=== PATIENT | male | born 1955 | race Caucasian/White ===

== ENCOUNTER 2016-12-23 06:35 | Inpatient (IN) | payer MEDICARE, MEDICAID ==
[~2016-12-23] VITALS: Ht 172.7 cm; Wt 69.1 kg
[~2016-12-23 06:35] MED LIST: ACET-784 PO; ASPI-1132 PO; BISA10S PR; CLOM50 PO; CYAN50TA2 PO; DEXAMETHASONE SOD PHOS 4 MG/ML VIAL IVP ONE; FE PR; FOLI1 PO; FentaNYL CITRATE-PF 100 MCG/2 ML VIAL IVP ONE; GLYCOPYRROLATE 0.2 MG/ML VIAL IM ONE; KETAMINE HCL 50 MG/ML 10 ML VIAL IVP ONE; LACT30L PO; METO5TAB95 PO; MOM30 PO; ONDANSETRON HCL 4 MG/2 ML VIAL IVP ONE; PROPOFOL 1% 20 ML VIAL IVP ONE; QUET100T PO; QUET200T PO; RINGERS SOLUTION,LACTATED 1,000 ML IV ONE; RISP.5 PO; SUCCINYLCHOLINE CHLORIDE 20 MG/ML 10 ML VIAL IVP ONE; TAMS0.4C32 PO
[2016-12-23] MEDS ORDERED: RINGERS SOLUTION,LACTATED 1,000 ML IV ONE (06:58)
[2016-12-23] MEDS ORDERED: MIDAZOLAM HCL 5 MG/ML VIAL ONE ×2 (07:28)
[2016-12-23 07:58] LABS: EOSINOPHILS % (AUTO) 2.6 % (1.0-6.0); HEMATOCRIT 38.9 % (41-53); HEMOGLOBIN 13.2 g/dL (13.5-17.5); MEAN CORPUSCULAR HEMOGLOBIN 31.1 pg (26.0-34.0); MEAN CORPUSCULAR HGB CONC 33.8 G/dL (31.0-37.0); MEAN CORPUSCULAR VOLUME 92 fL (80-100); MONOCYTES # (AUTO) 0.5 K/uL (0.1-1.0); MONOCYTES % (AUTO) 8.2 % (2.0-9.0); NEUTROPHILS # (AUTO) 4.4 K/uL (1.8-7.7); NEUTROPHILS % (AUTO) 73.2 % (40.0-70.0); PLATELET COUNT (AUTO) 195 K/uL (150-450); RED BLOOD CELL COUNT(AUTO) 4.23 MIL/uL (4.50-5.90); RED CELL DISTRIBUTION WIDTH 13.5 % (11.5-14.5)
[2016-12-23 08:04] LABS: ANION GAP 9 mmol/L (8-16); CALCIUM, TOTAL 8.9 mg/dL (8.8-10.5); CARBON DIOXIDE 25 mmol/L (22-29); CHLORIDE 104 mmol/L (98-107); GLOMERULAR FILTR. RATE CALC > 60 mL/min (>60); POTASSIUM 4.1 mmol/L (3.5-5.1); SODIUM SERUM 138 mmol/L (136-145); UREA NITROGEN, BLOOD 22 mg/dL (7-18)
[2016-12-23 08:11] LABS: ALANINE AMINOTRANSFERASE 21 U/L (12-78); ALBUMIN 3.6 g/dL (3.4-5.0); ASPARTATE AMINOTRANSFERASE 15 U/L (15-37); BILIRUBIN,TOTAL 0.4 mg/dL (0.1-1.0); TOTAL PROTEIN, SERUM 8.2 g/dL (6.4-8.2)
[2016-12-23 08:13] LABS: INR 1.1 (0.9-1.1); PROTHROMBIN TIME 11.1 SEC (9.4-11.6)
[2016-12-23] MEDS ORDERED: LEVALBUTEROL HCL 1.25 MG/0.5 ML NEB SOLUTION NEB ONE ×2 (12:15→12:23)
[2016-12-23] MEDS ORDERED: 0.9% SODIUM CHLORIDE 5 ML NEB SOLUTION NEB ONE (12:23)
[2016-12-23] MEDS ORDERED: OXYMETAZOLINE HCL 0.05% 15 ML NASAL SPRAY NASAL ONE (13:00)
[2016-12-23 13:37] LABS: ABG A-A DIFF O2 43.2 mmHg (10-20.0); ABG HCO3 22.5 mmol/L (22.0-26.0); ABG OXYHEMOGLOBIN 85.4 % (94.0-100.0); ABG PCO2 45 mmHg (35-45); ABG PH 7.342 (7.35-7.450); ALLEN TEST, BLOOD GAS POSITIVE; TEMPERATURE, FAHRENHEIT, BG 98.6 FAHREN (96.0-98.6)
[2016-12-23] MEDS ORDERED: FUROSEMIDE 40 MG/4 ML VIAL IVP ONE (13:45)
[2016-12-23] MEDS ORDERED: FUROSEMIDE 40 MG/4 ML VIAL ONE (13:46)
[2016-12-23 15:20] VITALS: BP 148/80
[2016-12-23] MEDS ORDERED: SODIUM PHOS/SODIUM BIPHOS 133 ML ENEMA PR PRN (17:00)
[2016-12-23] MEDS ORDERED: ACETAMINOPHEN 325 MG TABLET GT PRN (17:00)
[2016-12-23] MEDS: METOCLOPRAMIDE HCL 5 MG TABLET GT SCH (19:53)
[2016-12-23] MEDS: QUEtiapine FUMARATE 200 MG TABLET GT SCH (19:53)
[2016-12-23] MEDS: RisperiDONE 0.5 MG TABLET GT SCH (19:53)
[2016-12-23] MEDS: LACTULOSE 20 GM/30 ML SOLUTION UDCUP GT SCH (19:53)
[2016-12-23] MEDS: FOLIC ACID 1 MG TABLET GT SCH (19:53)
[2016-12-23 20:03] VITALS: BP 126/70
[2016-12-23] MEDS ORDERED: ALBUTEROL SULFATE 2.5 MG/0.5 ML NEB SOLUTION NEB PRN (21:30)
[2016-12-23] MEDS ORDERED: IPRATROPIUM BROMIDE 0.5 MG/2.5 ML NEB SOLUTION NEB PRN (21:30)
[2016-12-23] MEDS: AZITHROMYCIN 500 MG/NS 250 ML IV SCH (22:53)
[2016-12-23 23:43] VITALS: BP 108/59
[2016-12-23] MEDS: CefTRIAXone 1 GM/DEXTROSE 50 ML IV SCH (23:47)
[2016-12-24 04:53] VITALS: BP 120/64
[2016-12-24 07:48] VITALS: BP 118/68
[2016-12-24] MEDS: METOCLOPRAMIDE HCL 5 MG TABLET GT SCH ×3 (08:28→21:31)
[2016-12-24] MEDS: QUEtiapine FUMARATE 100 MG TABLET GT SCH ×2 (08:28→16:27)
[2016-12-24] MEDS: LACTULOSE 20 GM/30 ML SOLUTION UDCUP GT SCH ×2 (08:28→21:31)
[2016-12-24] MEDS: FOLIC ACID 1 MG TABLET GT SCH ×2 (08:29→21:31)
[2016-12-24] MEDS: CYANOCOBALAMIN 100 MCG TABLET GT SCH (08:29)
[2016-12-24] MEDS: RisperiDONE 0.5 MG TABLET GT SCH ×2 (08:29→21:31)
[2016-12-24] MEDS: TAMSULOSIN HCL 0.4 MG CAPSULE GT SCH (08:29)
[2016-12-24] MEDS ORDERED: FUROSEMIDE 40 MG/4 ML VIAL IVP ONE (11:30)
[2016-12-24 11:39] VITALS: BP 130/76
[2016-12-24 15:10] VITALS: BP 117/61
[2016-12-24 19:56] VITALS: BP 126/70
[2016-12-24] MEDS: QUEtiapine FUMARATE 200 MG TABLET GT SCH (21:31)
[2016-12-24] MEDS: AZITHROMYCIN 500 MG/NS 250 ML IV SCH (21:34)
[2016-12-24] MEDS ORDERED: OXYGEN THERAPY IH SCH (22:30)
[2016-12-24] MEDS: CefTRIAXone 1 GM/DEXTROSE 50 ML IV SCH (23:18)
[2016-12-24 23:44] VITALS: BP 117/67
[2016-12-25 05:22] VITALS: BP 126/59
[2016-12-25 06:27] LABS: BASOPHILS % (AUTO) 0.2 % (0.0-2.0); EOSINOPHILS % (AUTO) 0.7 % (1.0-6.0); HEMATOCRIT 35.7 % (41-53); HEMOGLOBIN 12.3 g/dL (13.5-17.5); LYMPHOCYTES % (AUTO) 12.3 % (22.0-44.0); MEAN CORPUSCULAR HEMOGLOBIN 31.5 pg (26.0-34.0); MEAN CORPUSCULAR HGB CONC 34.3 G/dL (31.0-37.0); MEAN CORPUSCULAR VOLUME 92 fL (80-100); MONOCYTES # (AUTO) 0.5 K/uL (0.1-1.0); NEUTROPHILS # (AUTO) 6.3 K/uL (1.8-7.7); NEUTROPHILS % (AUTO) 80.8 % (40.0-70.0); PLATELET COUNT (AUTO) 175 K/uL (150-450); RED BLOOD CELL COUNT(AUTO) 3.89 MIL/uL (4.50-5.90); RED CELL DISTRIBUTION WIDTH 13.9 % (11.5-14.5); WHITE BLOOD COUNT (AUTO) 7.8 K/uL (4.5-11.0)
[2016-12-25 06:42] LABS: ANION GAP 7 mmol/L (8-16); CALCIUM, TOTAL 8.8 mg/dL (8.8-10.5); CARBON DIOXIDE 26 mmol/L (22-29); CHLORIDE 104 mmol/L (98-107); CREATININE 1.08 mg/dL (0.60-1.30); GLOMERULAR FILTR. RATE CALC > 60 mL/min (>60); POTASSIUM 3.5 mmol/L (3.5-5.1); SODIUM SERUM 137 mmol/L (136-145); UREA NITROGEN, BLOOD 26 mg/dL (7-18)
[2016-12-25 07:47] VITALS: BP 149/68
[2016-12-25] MEDS: TAMSULOSIN HCL 0.4 MG CAPSULE GT SCH (09:30)
[2016-12-25] MEDS: METOCLOPRAMIDE HCL 5 MG TABLET GT SCH (09:30)
[2016-12-25] MEDS: QUEtiapine FUMARATE 100 MG TABLET GT SCH (09:30)
[2016-12-25] MEDS: CYANOCOBALAMIN 100 MCG TABLET GT SCH (09:30)
[2016-12-25] MEDS: FOLIC ACID 1 MG TABLET GT SCH (09:30)
[2016-12-25] MEDS: LACTULOSE 20 GM/30 ML SOLUTION UDCUP GT SCH (09:30)
[2016-12-25] MEDS: RisperiDONE 0.5 MG TABLET GT SCH (09:30)
[2016-12-25] MEDS ORDERED: AZIT200S36 PO (11:07)
[2016-12-25 11:15] VITALS: BP 133/71
[2016-12-25 15:22] VITALS: BP 135/67
== END 2016-12-25 16:40 | DRG 157 ==
LOC: SURGERY 06:35 → 6N 14:27
PROVIDERS: ADMIT Internal Medicine; ATTEND Internal Medicine
PROC: 0CB Mouth and Throat, Excision (ICD-10-PCS; 2016-12-23)
PROC: 0CB Mouth and Throat, Excision (ICD-10-PCS; principal; 2016-12-23 09:15)
DX: K05.6 Periodontal disease, unspecified (principal); J69.0 Pneumonitis due to inhalation of food and vomit; J96.01 Acute respiratory failure with hypoxia; F73 Profound intellectual disabilities; D64.9 Anemia, unspecified; F25.9 Schizoaffective disorder, unspecified; G40.909 Epilepsy, unspecified, not intractable, without status epilepticus; G80.9 Cerebral palsy, unspecified; K02.9 Dental caries, unspecified; K21.9 Gastro-esophageal reflux disease without esophagitis; K59.00 Constipation, unspecified; N40.0 Benign prostatic hyperplasia without lower urinary tract symptoms; Z93.1 Gastrostomy status; Z88.8 Allergy status to other drugs, medicaments and biological substances
CPT/HCPCS: 82805; 93005; 94640; J0330; J0456; J0696; J1100; J1940; J2250; J2405; J2704; J3010; J3490; J7120

== ENCOUNTER 2019-05-17 06:03 | Day surgery (SDC) | payer OTHER, MEDICARE, MEDICAID ==
[~2019-05-17] VITALS: Ht 172.7 cm; Wt 73.5 kg
[~2019-05-17 06:03] MED LIST changes: +AZIT200S36 PO; -BISA10S PR; +BISA10SU11 PR; -DEXAMETHASONE SOD PHOS 4 MG/ML VIAL IVP ONE; -FentaNYL CITRATE-PF 100 MCG/2 ML VIAL IVP ONE; -GLYCOPYRROLATE 0.2 MG/ML VIAL IM ONE; -KETAMINE HCL 50 MG/ML 10 ML VIAL IVP ONE; -ONDANSETRON HCL 4 MG/2 ML VIAL IVP ONE; -PROPOFOL 1% 20 ML VIAL IVP ONE; -SUCCINYLCHOLINE CHLORIDE 20 MG/ML 10 ML VIAL IVP ONE; +TAMS-13 PO; -TAMS0.4C32 PO
[2019-05-17] MEDS ORDERED: SODIUM CHLORIDE 0.9% 100 ML ONE (06:55)
[2019-05-17] MEDS ORDERED: AMPICILLIN SODIUM 1 GM/VIAL ONE (06:55)
[2019-05-17] MEDS ORDERED: RINGERS SOLUTION,LACTATED 1,000 ML IV ONE (07:00)
[2019-05-17] MEDS ORDERED: DOXA2TAB PO (07:19)
[2019-05-17] MEDS ORDERED: DILT60 PO (07:19)
[2019-05-17] MEDS ORDERED: CLOM50 PO (07:19)
[2019-05-17] MEDS ORDERED: DENO60DI SQ (07:19)
[2019-05-17] MEDS ORDERED: FE PR (07:19)
[2019-05-17] MEDS ORDERED: PROPOFOL 1% 20 ML VIAL IVP ONE (12:00)
[2019-05-17] MEDS ORDERED: ROCURONIUM BROMIDE 10 MG/ML 5 ML VIAL IVP ONE (12:00)
[2019-05-17] MEDS ORDERED: LIDOCAINE/PF 2% 5 ML SYRINGE IVP ONE (12:00)
[2019-05-17] MEDS ORDERED: MIDAZOLAM HCL 2 MG/2 ML VIAL IVP ONE (12:00)
[2019-05-17] MEDS ORDERED: FentaNYL CITRATE-PF 100 MCG/2 ML VIAL IVP ONE (12:00)
== END 2019-05-17 12:40 | disposition home or self-care (01) ==
LOC: SURGERY 06:03
PROVIDERS: ATTEND Dentist General Practice
DX: K02.9 Dental caries, unspecified (principal); K05.30 Chronic periodontitis, unspecified; G40.909 Epilepsy, unspecified, not intractable, without status epilepticus; E03.9 Hypothyroidism, unspecified; F41.9 Anxiety disorder, unspecified; K21.9 Gastro-esophageal reflux disease without esophagitis; N40.0 Benign prostatic hyperplasia without lower urinary tract symptoms; I48.91 Unspecified atrial fibrillation; M81.0 Age-related osteoporosis without current pathological fracture; M19.90 Unspecified osteoarthritis, unspecified site; E66.3 Overweight; Z68.24 Body mass index [BMI] 24.0-24.9, adult; Z93.1 Gastrostomy status; Z79.899 Other long term (current) drug therapy
CPT/HCPCS: 41899; J0290; J2250; J2704; J3010; J3490 ×2; J7050; J7120

== ENCOUNTER 2020-10-16 06:02 | Day surgery (SDC) | payer OTHER, MEDICARE, MEDICAID ==
[~2020-10-16] VITALS: Ht 165.1 cm; Wt 72.3 kg
[~2020-10-16 06:02] MED LIST changes: -ASPI-1132 PO; -AZIT200S36 PO; -CYAN50TA2 PO; +DENO60DI SQ; +DILT60TA4 PO; +DOXA2TAB PO; -FOLI1 PO; -QUET100T PO; -QUET200T PO; -RINGERS SOLUTION,LACTATED 1,000 ML IV ONE; -RISP.5 PO; +RISP0.5T39 PO; -TAMS-13 PO
[2020-10-16] MEDS ORDERED: RINGERS SOLUTION,LACTATED 1,000 ML IV ONE ×2 (06:15→08:00)
[2020-10-16 07:19] LABS: COVID AG,FIA SOURCE NASOPHARYNGEAL
[2020-10-16] MEDS ORDERED: AMPICILLIN SODIUM 1 GM/VIAL ONE ×2 (08:04→09:53)
[2020-10-16] MEDS ORDERED: SODIUM CHLORIDE 0.9% 10 ML ONE (08:08)
[2020-10-16 08:20] LABS: BASOPHILS % (AUTO) 0.5 % (0.0-2.0); EOSINOPHILS % (AUTO) 3.1 % (1.0-6.0); HEMATOCRIT 38.8 % (41-53); HEMOGLOBIN 13.1 g/dL (13.5-17.5); LYMPHOCYTES # (AUTO) 1.1 K/uL (1.0-4.8); LYMPHOCYTES % (AUTO) 17.3 % (22.0-44.0); MEAN CORPUSCULAR HEMOGLOBIN 30.4 pg (26.0-34.0); MEAN CORPUSCULAR HGB CONC 33.7 G/dL (31.0-37.0); MEAN CORPUSCULAR VOLUME 90 fL (80-100); MONOCYTES # (AUTO) 0.6 K/uL (0.1-1.0); MONOCYTES % (AUTO) 8.9 % (2.0-9.0); NEUTROPHILS # (AUTO) 4.5 K/uL (1.8-7.7); NEUTROPHILS % (AUTO) 70.2 % (40.0-70.0); PLATELET COUNT (AUTO) 198 K/uL (150-450); RED BLOOD CELL COUNT(AUTO) 4.31 MIL/uL (4.50-5.90); RED CELL DISTRIBUTION WIDTH 13.5 % (11.5-14.5)
[2020-10-16] MEDS ORDERED: SODIUM CHLORIDE 0.9% 100 ML ONE (08:20)
[2020-10-16 08:31] LABS: ANION GAP 9 mmol/L (8-16); CALCIUM, TOTAL 9.6 mg/dL (8.8-10.5); CARBON DIOXIDE 26 mmol/L (22-29); CHLORIDE 106 mmol/L (98-107); CREATININE 1.03 mg/dL (0.60-1.30); GLOMERULAR FILTR. RATE CALC > 60 mL/min (>60); GLUCOSE,RANDOM 93 mg/dL (70-110); POTASSIUM 3.8 mmol/L (3.5-5.1); SODIUM SERUM 141 mmol/L (136-145); UREA NITROGEN, BLOOD 23 mg/dL (7-18)
[2020-10-16 08:36] LABS: ALANINE AMINOTRANSFERASE 21 U/L (12-78); ALBUMIN 3.6 g/dL (3.4-5.0); ALKALINE PHOSPHATASE 67 U/L (46-116); ASPARTATE AMINOTRANSFERASE 17 U/L (15-37); BILIRUBIN,TOTAL 0.3 mg/dL (0.1-1.0); TOTAL PROTEIN, SERUM 7.7 g/dL (6.4-8.2)
[2020-10-16 08:37] LABS: PROTHROMBIN TIME 10.7 SEC (9.4-11.6)
[2020-10-16] MEDS ORDERED: CLINDAMYCIN PHOS 150 MG/ML 4 ML VIAL ONE (09:53)
[2020-10-16] MEDS ORDERED: PROPOFOL 1% 20 ML VIAL IVP ONE (12:00)
[2020-10-16] MEDS ORDERED: FentaNYL CITRATE PF 100 MCG/2 ML VIAL IVP ONE (12:00)
[2020-10-16] MEDS ORDERED: ROCURONIUM BROMIDE 10 MG/ML 5 ML VIAL IVP ONE (12:00)
[2020-10-16] MEDS ORDERED: LIDOCAINE/PF 2% 5 ML VIAL IM ONE (12:00)
[2020-10-16] MEDS ORDERED: MIDAZOLAM HCL 2 MG/2 ML VIAL IVP ONE (12:00)
== END 2020-10-16 11:35 | disposition home or self-care (01) ==
LOC: SURGERY 06:02
PROVIDERS: ATTEND Dentist General Practice
DX: K02.9 Dental caries, unspecified (principal); K05.30 Chronic periodontitis, unspecified; G40.909 Epilepsy, unspecified, not intractable, without status epilepticus; E03.9 Hypothyroidism, unspecified; F25.9 Schizoaffective disorder, unspecified; F41.9 Anxiety disorder, unspecified; I10 Essential (primary) hypertension; K21.9 Gastro-esophageal reflux disease without esophagitis; K59.00 Constipation, unspecified; Z79.899 Other long term (current) drug therapy; Z98.890 Other specified postprocedural states; Z79.01 Long term (current) use of anticoagulants
CPT/HCPCS: 36415; 41899; 71045; 80053; 85025; 85610; 85730; 87426; 93005; C9803; J0290; J2250; J2704; J3010; J3490 ×2; J7050; J7120; S0077

== ENCOUNTER 2022-02-11 05:56 | Day surgery (SDC) | payer OTHER, MEDICARE, MEDICAID ==
[~2022-02-11] VITALS: Ht 162.6 cm; Wt 72.3 kg
[~2022-02-11 05:56] MED LIST changes: -DOXA2TAB PO; +DOXA2TAB86 PO; -FE PR; +LACT10SO10 PO; -LACT30L PO; +MAGN-169 PO; -MOM30 PO; +NA P266E PR
[2022-02-11] MEDS ORDERED: LIDOCAINE/PF 2% 5 ML VIAL IM ONE (05:57)
[2022-02-11] MEDS ORDERED: 0.9% SODIUM CHLORIDE 10 ML VIAL IVP ONE (05:57)
[2022-02-11] MEDS ORDERED: ROCURONIUM BROMIDE 10 MG/ML 5 ML VIAL IVP ONE (05:57)
[2022-02-11] MEDS ORDERED: FentaNYL CITRATE PF 100 MCG/2 ML VIAL IM ONE (05:57)
[2022-02-11] MEDS ORDERED: PROPOFOL 1% 20 ML VIAL IVP ONE (05:57)
[2022-02-11] MEDS ORDERED: DEXAMETHASONE SOD PHOS 4 MG/ML VIAL IVP ONE (05:57)
[2022-02-11] MEDS ORDERED: RINGERS SOLUTION,LACTATED 1,000 ML IV ONE ×2 (06:30→06:46)
[2022-02-11 06:31] LABS: COVID AG,FIA SOURCE NASAL SWAB
[2022-02-11 06:58] LABS: BASOPHILS % (AUTO) 0.5 % (0.0-2.0); EOSINOPHILS % (AUTO) 3.4 % (1.0-6.0); HEMATOCRIT 35.8 % (41-53); LYMPHOCYTES # (AUTO) 1.3 K/uL (1.0-4.8); LYMPHOCYTES % (AUTO) 22.3 % (22.0-44.0); MEAN CORPUSCULAR HEMOGLOBIN 30.3 pg (26.0-34.0); MEAN CORPUSCULAR HGB CONC 33.5 G/dL (31.0-37.0); MEAN CORPUSCULAR VOLUME 90 fL (80-100); MONOCYTES # (AUTO) 0.6 K/uL (0.1-1.0); MONOCYTES % (AUTO) 9.9 % (2.0-9.0); NEUTROPHILS # (AUTO) 3.7 K/uL (1.8-7.7); NEUTROPHILS % (AUTO) 63.9 % (40.0-70.0); PLATELET COUNT (AUTO) 214 K/uL (150-450); RED BLOOD CELL COUNT(AUTO) 3.96 MIL/uL (4.50-5.90); RED CELL DISTRIBUTION WIDTH 13.7 % (11.5-14.5)
[2022-02-11 07:13] LABS: PROTHROMBIN TIME 10.8 SEC (9.4-11.6)
[2022-02-11 07:23] LABS: ANION GAP 8 mmol/L (8-16); CALCIUM, TOTAL 9.2 mg/dL (8.8-10.5); CARBON DIOXIDE 24 mmol/L (22-29); CHLORIDE 106 mmol/L (98-107); CREATININE 0.93 mg/dL (0.60-1.30); GLUCOSE,RANDOM 92 mg/dL (70-110); POTASSIUM 4.1 mmol/L (3.5-5.1); SODIUM SERUM 138 mmol/L (136-145); UREA NITROGEN, BLOOD 22 mg/dL (7-18)
[2022-02-11] MEDS ORDERED: AMPICILLIN SODIUM 2 GM/NS 100 ML IV ONE (07:26)
[2022-02-11 07:27] LABS: GLOMERULAR FILTR. RATE CALC > 60 mL/min (>60)
[2022-02-11 07:28] LABS: ALANINE AMINOTRANSFERASE 17 U/L (12-78); ALKALINE PHOSPHATASE 62 U/L (46-116); ASPARTATE AMINOTRANSFERASE 16 U/L (15-37); BILIRUBIN,TOTAL 0.2 mg/dL (0.1-1.0); TOTAL PROTEIN, SERUM 7.6 g/dL (6.4-8.2)
== END 2022-02-11 10:45 | disposition home or self-care (01) ==
LOC: SURGERY 05:56
PROVIDERS: ATTEND Dentist General Practice
DX: K02.9 Dental caries, unspecified (principal); K05.30 Chronic periodontitis, unspecified; K03.6 Deposits [accretions] on teeth; E03.9 Hypothyroidism, unspecified; F41.9 Anxiety disorder, unspecified; K59.00 Constipation, unspecified; I10 Essential (primary) hypertension; G40.909 Epilepsy, unspecified, not intractable, without status epilepticus; K21.9 Gastro-esophageal reflux disease without esophagitis; Z79.01 Long term (current) use of anticoagulants; Z79.899 Other long term (current) drug therapy; Z98.890 Other specified postprocedural states
CPT/HCPCS: 41899; 71045; 87426; 80053; 85025; 85610; 85730; 36415; 93005; J0290; J2704; J1100; J3010; J3490 ×2; J7120; C9803

== ENCOUNTER 2024-03-15 05:36 | Day surgery (SDC) | payer OTHER, MEDICARE ==
[~2024-03-15] VITALS: Ht 165.1 cm; Wt 79.5 kg
[2024-03-15] MEDS ORDERED: RINGERS SOLUTION,LACTATED 1,000 ML IV ONE (06:08)
[2024-03-15] MEDS ORDERED: AMPICILLIN SODIUM 2 GM/NS 100 ML IV ONE (07:19)
[2024-03-15 07:38] LABS: BASOPHILS % (AUTO) 0.5 % (0.0-2.0); EOSINOPHILS % (AUTO) 3.1 % (1.0-6.0); HEMATOCRIT 38.4 % (41-53); HEMOGLOBIN 13.1 g/dL (13.5-17.5); LYMPHOCYTES # (AUTO) 1.3 K/uL (1.0-4.8); LYMPHOCYTES % (AUTO) 19.9 % (22.0-44.0); MEAN CORPUSCULAR HEMOGLOBIN 31.7 pg (26.0-34.0); MEAN CORPUSCULAR HGB CONC 34.2 G/dL (31.0-37.0); MEAN CORPUSCULAR VOLUME 93 fL (80-100); MONOCYTES # (AUTO) 0.6 K/uL (0.1-1.0); MONOCYTES % (AUTO) 9.1 % (2.0-9.0); NEUTROPHILS # (AUTO) 4.5 K/uL (1.8-7.7); NEUTROPHILS % (AUTO) 67.4 % (40.0-70.0); PLATELET COUNT (AUTO) 210 K/uL (150-450); RED BLOOD CELL COUNT(AUTO) 4.14 MIL/uL (4.50-5.90); RED CELL DISTRIBUTION WIDTH 13.6 % (11.5-14.5); WHITE BLOOD COUNT (AUTO) 6.7 K/uL (4.5-11.0)
[2024-03-15 07:56] LABS: PROTHROMBIN TIME 10.3 SEC (9.4-11.6)
[2024-03-15 08:02] LABS: ANION GAP 8 mmol/L (8-16); CALCIUM, TOTAL 8.9 mg/dL (8.8-10.5); CARBON DIOXIDE 24 mmol/L (22-29); CHLORIDE 108 mmol/L (98-107); CREATININE 0.99 mg/dL (0.60-1.30); GLOMERULAR FILTR. RATE CALC > 60 mL/min (>60); GLUCOSE,RANDOM 104 mg/dL (70-110); POTASSIUM 4.1 mmol/L (3.5-5.1); SODIUM SERUM 140 mmol/L (136-145); UREA NITROGEN, BLOOD 30 mg/dL (7-18)
[2024-03-15 08:08] LABS: ALANINE AMINOTRANSFERASE 15 U/L (12-78); ALBUMIN 3.2 g/dL (3.4-5.0); ALKALINE PHOSPHATASE 78 U/L (46-116); ASPARTATE AMINOTRANSFERASE 18 U/L (15-37); BILIRUBIN,TOTAL 0.3 mg/dL (0.1-1.0); TOTAL PROTEIN, SERUM 7.9 g/dL (6.4-8.2)
[2024-03-15] MEDS: RINGERS SOLUTION,LACTATED 1,000 ML IV ONE (11:32)
[2024-03-15] MEDS ORDERED: PROPOFOL 1% 20 ML VIAL IVP ONE (12:00)
[2024-03-15] MEDS ORDERED: TRANEXAMIC ACID 1,000 MG/10 ML VIAL IVP ONE (12:00)
[2024-03-15] MEDS ORDERED: DEXAMETHASONE SOD PHOS 4 MG/ML VIAL IVP ONE (12:00)
[2024-03-15] MEDS ORDERED: GLYCOPYRROLATE 0.2 MG/ML VIAL IM ONE (12:00)
[2024-03-15] MEDS ORDERED: LIDOCAINE/PF 2% 5 ML VIAL IM ONE (12:00)
[2024-03-15] MEDS ORDERED: 0.9% SODIUM CHLORIDE 10 ML VIAL IVP ONE (12:00)
[2024-03-15] MEDS ORDERED: ONDANSETRON HCL 4 MG/2 ML VIAL IVP ONE (12:00)
== END 2024-03-15 14:30 | disposition home or self-care (01) ==
LOC: SURGERY 05:36
PROVIDERS: ATTEND Dentist General Practice
DX: K02.9 Dental caries, unspecified (principal); K05.20 Aggressive periodontitis, unspecified; K03.6 Deposits [accretions] on teeth; I49.1 Atrial premature depolarization; I10 Essential (primary) hypertension; E03.9 Hypothyroidism, unspecified; I48.0 Paroxysmal atrial fibrillation; K21.9 Gastro-esophageal reflux disease without esophagitis; F41.9 Anxiety disorder, unspecified; G80.9 Cerebral palsy, unspecified; Z96.642 Presence of left artificial hip joint; Z98.890 Other specified postprocedural states
CPT/HCPCS: 41899; 71045; 80053; 85025; 85610; 85730; 36415; 93005; J0290; J2704; J1100; J3490 ×3; J2405; J7120; Z7610